=== PATIENT | female | born 1970 | race Asian ===

== ENCOUNTER 2017-08-27 12:16 | Emergency (ER) | payer OTHER ==
[~2017-08-27] VITALS: Ht 162.6 cm; Wt 59.0 kg
[2017-08-27 12:22] VITALS: BP 131/82
[2017-08-27] MEDS ORDERED: ERYTHROMYCIN OPHTH 0.5%, 1GM RIGHTEYE ONE (13:30)
== END 2017-08-27 13:37 | disposition home or self-care (01) ==
LOC: ED 13:31
DX: M35.01 Sjogren syndrome with keratoconjunctivitis (principal)
CPT/HCPCS: 99282